=== PATIENT | female | born 1990 | race Two or more races ===

== ENCOUNTER 2017-08-16 16:59 | Outpatient (CLI) | payer OTHER ==
[~2017-08-16] VITALS: Ht 165.1 cm; Wt 82.1 kg
[~2017-08-16 16:59] MED LIST: ONDA4TAB PO; PROM-110 PO; TRAM-420 PO
[2017-08-16] MEDS ORDERED: PREN-127 PO (17:55)
[2017-08-16 17:56] VITALS: BP 117/74; Ht 165.1 cm; Wt 82.1 kg
--- NOTE | 2017-08-16 23:04 | History & Physical ---
History of Present Illness Age of Patient: 27 : 2 Para or TPAL: 0010 EDC per LMP: Dec 19, 2017 EDC per U/S: Dec 19, 2017 Estimated Gestational Age: 22.1 Chief Complaint "I think my water broke" History of Present Illness Pt is a 27 y/o @ 22-1/7 weeks gestation who presents to L&D with a chief complaint of, "I think my water broke." Pt reports having the sensation of leaking beginning this morning around 0630. Reports clear amniotic fluid. Reports changing clothes and continuing to have leaking through out the day. Pt is under the care of a medical reimbursement specialist, "Sandy" here in [facility]. Pt reports have a due date of 12/24/17 based on time of conception. LMP was reported as 03/14/17 with 33 day cycles. Pt denies any fevers or chills. Good movement. No vaginal bleeding. History Obstetrical History: History of D&E Past Medical History: Non contributory per patient. Allergies: Coded Allergies: No Known Drug Allergies (Unverified , 09/12/15) Social History: Denies use of alcohol, tobacco, or recreational drugs. Significant other is currently in [place]. Pt works at . [facility] Home Meds Reported Medications Vits W-Ca,Fe,Fa(<1MG) ( VITAMINS) 1 Each Tablet, 1 EACH PO DAILY, TAB 08/16/17 Discontinued Scripts Tramadol Hcl (TRAMADOL HCL) 50 Mg Tablet, 50-100 MG PO Q4-6H for PAIN, #30 TAB Prov:LEO MARIN DO 12/30/15 Promethazine Hcl (PROMETHAZINE HCL) 25 Mg Tablet, 25 MG PO Q6H for Nausea, #30 TAB Prov:LEO MARIN DO 12/30/15 Ondansetron (ZOFRAN ODT) 4 Mg Tab.rapdis, 4 MG PO Q6H for Nausea, #15 TAB.ELIZABETH Prov:LEO MARIN DO 12/30/15 Review of Systems All Systems Reviewed/Normal: Yes, Except as Noted Constitutional: No Fever, No Weight Loss, No Weight Gain, No Chills, No Night Sweats, No Other Neurological: No Syncope, No Confusion, No Weakness, No Dizziness, No Slurred Speech, No Other Eyes: No Vision Change, No Loss of Vision, No Photophobia, No Other ENT: No Hearing Loss, No Sinus Congestion, No Sore Throat, No Ear Ache, No Tinnitus, No Other Cardiovascular: No Chest Pain, No Palpitations, No Orthostatic Hypotension, No Other Respiratory: No Shortness of Breath, No Cough, No Wheezing, No Other Gastrointestinal: No Nausea, No Vomiting, No Diarrhea, No Dysphagia, No Constipation, No Early Satiety, No Hematemesis, No Hematochezia, No Melena, No Abdominal Pain, No Other Genitourinary: No Dysuria, No Hematuria, No Urinary Incontinence, No Other Musculoskeletal: No Pain, No Sprain, No Strain, No Impaired Mobility, No Other Psychiatric: No Depression, No Anxiety, No Other Exam General Exam Vital Signs Vital Signs Date Time Temp Pulse Resp B/P (MAP) Pulse Ox O2 Delivery O2 Flow Rate FiO2 08/16/17 17:56 97.4 105 18 117/74 (88) 94 Room Air General Apperance: Alert/Awake/No Acute Distress Neuro: No Gross deficits Eyes: Normal Extraocular Movement & Vison ENT: Normal Cardiovascular: Regular Rate and Rhythm Respiratory: No Respiratory Distress, Clear to Auscultation Abdomen: Soft, Non-Tender, Non-Distended, Gravid - Non-Tender : Normal Musculoskeletal: No Weakness/Pain Extremities: No Cyanosis,Clubbing or Edema Integumentary: Skin Intact without Lesions or Rash Psychological: Alert & Oriented X3, Appropriate Mood & Affect Vaginal Discharge/Fluid?: Clear Fluid Fetus Heart Tones: 150 Medical Decision Making Pre-Admit Course Medical Record Review: Yes VTE Prophylasis: Adult Deep Vein Thrombosis/Pulmonary: No Assessment and Plan 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 Conservative management. Monitor overnight and start PO antibiotic course to possible increase latency but this benefit hasn't been studied in under 24 week pregnancies. 2. Discharge today with antibiotics or no antibiotics dependent on patients preference. 3. Discharge with follow up with [facility] to discuss viable options for baby. Pt understands that labor usually happens with in 1 week of rupture of amniotic membranes. At significant risk of maternal and infections. Also at risk of vaginal bleeding. Pt encouraged to follow up with [facility] with which she desires too. Also encouraged to consider delivery with trained PROFESSOR OF PRACTICE secondary to concerns with bleeding and infection risks. Pt desires to be discharged home with information from [facility]. Will discuss with significant other and follow up in the morning at clinic. Will call patient to get [facility] appointment as soon as possible. Discussed patient with plumbing contractor [facility] provider, Dr. Copeland. She agrees that antibiotics haven't been studied in this gestational age but if patient wanted to proceed then she would recommend Amoxicillin and Azithromycin. She encouraged follow up with them with in the week. Fever and bleeding precautions emphasized by plumbing contractor doc. (3) premature rupture of membranes (PPROM) with onset of labor within 24 hours of rupture in second trimester, antepartum DEBBY ARITA DO Aug 16, 2017 23:04
== END 2017-08-16 20:05 | disposition home or self-care (01) ==
LOC: EDSTATUS 17:09 → L&D 17:11 → OB 17:11 → UNDOADMIN 17:11 → L&D 20:05 → UNDODISIN 20:05
PROVIDERS: ATTEND Student in an Organized Health Care Education/Training Program
DX: O42.012 Preterm premature rupture of membranes, onset of labor within 24 hours of rupture, second trimester (principal); Z3A.22 22 weeks gestation of pregnancy
CPT/HCPCS: 84112; 99213